=== PATIENT | male | born 1955 ===

== ENCOUNTER 2018-04-29 10:36 | Outpatient (CLI) | payer OTHER ==
[~2018-04-29] VITALS: Ht 175.3 cm; Wt 63.5 kg
== END 2018-04-29 17:56 | disposition home or self-care (01) ==
LOC: OFIC 805 10:36
DX: R04.0 Epistaxis (principal); H92.01 Otalgia, right ear; R09.81 Nasal congestion

== ENCOUNTER 2018-09-18 12:39 | Outpatient (CLI) | payer OTHER ==
[~2018-09-18] VITALS: Ht 152.4 cm; Wt 63.5 kg
== END 2018-09-18 12:55 | disposition home or self-care (01) ==
LOC: OFIC 805 12:39
DX: J34.89 Other specified disorders of nose and nasal sinuses (principal); R09.81 Nasal congestion